=== PATIENT | male | born 1960 | race Two or more races ===

== ENCOUNTER 2022-02-09 05:02 | Day surgery (SDC) | payer OTHER ==
[2022-02-09] MEDS ORDERED: LIDOCAINE HCL/PF 1% SDV 5ML VIAL ONE (07:50)
[2022-02-09] MEDS ORDERED: BUPIVACAINE HCL/PF 0.75% 10 ML VIAL ONE (07:50)
[2022-02-09 09:02] VITALS: BMI 28.2
[2022-02-09] MEDS ORDERED: BUPIVACAINE HCL/PF 0.75% 10 ML VIAL PNB ONE (10:22)
[2022-02-09] MEDS ORDERED: LIDOCAINE HCL 1% PRESERVATIVE FREE - 30ML VIAL IJ ONE (10:22)
[2022-02-09 11:45] VITALS: RESP 20
[2022-02-09 12:51] VITALS: BP 130/80; PULSE 70; TEMP 98
== END 2022-02-09 12:30 | disposition home or self-care (01) ==
LOC: JASU-SURG 05:02
PROVIDERS: ATTEND Pain Medicine Pain Medicine
PROC: BR16YZZ Fluoroscopy of Lumbar Facet Joint(s) using Other Contrast (ICD-10-PCS; 2022-02-09)
PROC: 3E0T3BZ Introduction of Anesthetic Agent into Peripheral Nerves and Plexi, Percutaneous Approach (ICD-10-PCS; principal; 2022-02-09 10:00)
DX: M47.816 Spondylosis without myelopathy or radiculopathy, lumbar region (principal); I10 Essential (primary) hypertension
CPT/HCPCS: 76000-TC-FY